=== PATIENT | male | born 1955 | race African-American/Black ===

== ENCOUNTER 2016-04-02 11:05 | Emergency (ER) | payer BC ==
--- NOTE | 2016-04-02 12:20 | UC ---
Head Injury HPI - HPI Summary HPI Summary: Two brake rotors fell on top of patient's head about 30-60 minutes ago. Initial seeing stars and feeling unsteady for 15-20 seconds. Headache and "stiffness ... weird" sensation across nose and cheeks since. Two painful swollen areas on back of head. Has been icing it since injury. When Asked, patient's stated patient has been acting normal. 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 PCP Haylee. He feels " a little funny", feels as if his right face feels like it is going to become tingly. no w/n/t. no slurred speech. he and his declines any confusion. - History Of Current Complaint Chief Complaint: UCHeadInjury Stated Complaint: HEAD INJURY Time Seen by Provider: 04/02/16 12:11 - Allergies/Home Medications Allergies/Adverse Reactions: Allergies Allergy/AdvReac Type Severity Reaction Status Date / Time No Known Allergies Allergy Verified 05/23/15 20:09 Home Medications: Home Medications Aspirin EC Low Dose* [Ecotrin EC Low Dose*] 81 mg PO DAILY 04/02/16 [History Confirmed 04/02/16] PMH/Surg Hx/FS Hx/Imm Hx Previously Healthy: Yes Endocrine History Of: Denies: Diabetes Cardiovascular History Of: Reports: Cardiac Disorders - a fib had an ablation, Hypertension Respiratory History Of: Denies: Asthma - Surgical History Surgical History: Yes Surgery Procedure, Year, and Place: Cardiac Ablation for Yojana Nicholson, 2007, [facility]. Umbilical Herniorrhaphy. Bilateral Knee Arthroplasties. Left Total Knee Arthroplasty - Family History Known Family History: Positive: Hypertension - Social History Alcohol Use: None Substance Use Type: None Smoking Status (MU): Never Smoked Tobacco - Immunization History Most Recent Tetanus Shot: 2008 Review of Systems Constitutional: Negative Skin: Negative Eyes: Negative ENT: Negative Respiratory: Negative Cardiovascular: Negative Gastrointestinal: Negative Genitourinary: Negative Motor: Negative Neurovascular: Negative Musculoskeletal: Negative Neurological: Other - "feel off" Psychological: Negative All Other Systems Reviewed And Are Negative: Yes Physical Exam Triage Information Reviewed: Yes Appearance: Well-Appearing, No Pain Distress, Well-Nourished Vital Signs: Initial Vital Signs Temp 97.9 F 04/02/16 11:31 Pulse 68 04/02/16 11:31 Resp 16 04/02/16 11:31 BP 124/87 04/02/16 11:31 Pulse Ox 99 04/02/16 11:31 Eye Exam: Normal ENT Exam: Normal ENT: Positive: Pharynx normal - no uvula Neck exam: Normal Neck: Positive: Supple, Nontender, No Lymphadenopathy Respiratory Exam: Normal Respiratory: Positive: Chest non-tender, Lungs clear, Normal breath sounds, No respiratory distress, No accessory muscle use Cardiovascular Exam: Normal Cardiovascular: Positive: RRR, No Murmur, Pulses Normal, Brisk Capillary Refill Abdominal Exam: Normal Abdomen Description: Positive: Nontender, Soft Musculoskeletal Exam: Normal Neurological Exam: Normal Neurological: Positive: Other: - CR III-XII intact. neg rhomberg, no pronator drift, nml tandem walk. pupils 5 to 3 mm. no tongue deviation, smile symmetrical. strength 5/5 UE and LE b/l. Psychological Exam: Normal Skin Exam: Normal Re-Evaluation - Re-Evaluation First Eval Re-Evaluation Time: 12:35 Change: Unchanged - vitals stable, pt stable Head Injury Course/Dx - Course Course Of Treatment: I feel that CT head is necessary bc sx and trauma to head. It is NA here today and would need to go to the closest ER bc nature of injury being a head trauma. His , Jodee, will be driving. Aware of risks of not taking ambulance AMA with risk of bleed, cva, sz, permenent disability. Of note , he is on 81 mgs of ASA (no coumadin or other blood thinners. h/o cardiac ablation and is reglar today). - Differential Dx/Diagnosis Differential Diagnosis/HQI/PQRI: Concussion Without LOC, Contusion, Intracranial Bleed Provider Diagnoses: head trauma - Physician Notification/Consults Discussed Patient Care With: FERNANDA Long at [facility] who accepts pt. case discussed. will fax note. Time Discussed With Above Provider: 12:30 Instructed by Provider To: Will See In ED Discharge - Discharge Plan Condition: Good Disposition: TRANS HIGHER LVL OF CARE FAC Referrals: J Carlos Leach MD [Primary Care Provider] - 2 Days
[2016-04-02 12:34] VITALS: BP 132/83
== END 2016-04-02 12:34 | disposition short-term general hospital (02) ==
LOC: UCCORT 11:05
DX: S09.90XA Unspecified injury of head, initial encounter (principal); W20.8XXA Other cause of strike by thrown, projected or falling object, initial encounter; Y93.89 Activity, other specified; Y92.9 Unspecified place or not applicable; I48.91 Unspecified atrial fibrillation; I10 Essential (primary) hypertension
CPT/HCPCS: 99213; G0463

== ENCOUNTER 2016-10-22 20:01 | Emergency (ER) | payer BC ==
[2016-10-22 20:15] VITALS: BP 117/73
[2016-10-22] MEDS ORDERED: Acetaminophen TAB* 325 MG PO ONE (20:29)
--- NOTE | 2016-10-22 20:30 | UC ---
Elbow Pain - HPI Summary HPI Summary: Fell and hit R elbow while fishing today. now has swelling and restricted ROM. Took naproxen earlier without relief. Pt states that R elbow is never able to fully extend. - History of Current Complaint Chief Complaint: UCUpperExtremity Stated Complaint: RIGHT ELBOW INJURY Time Seen by Provider: 10/22/16 20:23 Hx Obtained From: Patient Onset/Duration: Hours, Traumatic Severity Initially: Moderate Severity Currently: Moderate Location Of Pain: Is Discrete @ Character: Dull, Aching Aggravating Factor(s): Movement Alleviating Factor(s): Rest Associated Signs And Symptoms: Positive: Swelling - Allergies/Home Medications Allergies/Adverse Reactions: Allergies Allergy/AdvReac Type Severity Reaction Status Date / Time No Known Allergies Allergy Verified 10/22/16 20:07 Home Medications: Home Medications Naproxen Sodium [Naproxen Sodium 220 mg] 220 mg PO ONCE PRN 10/22/16 [History Confirmed 10/22/16] PMH/Surg Hx/FS Hx/Imm Hx Cardiovascular History: Hypertension, Atrial Fibrillation - Surgical History Surgical History: Yes Surgery Procedure, Year, and Place: Cardiac Ablation for A. FIb, 2007, [facility]. Umbilical Herniorrhaphy. Bilateral Knee Arthroplasties. Left Total Knee Arthroplasty. 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 Alcohol Use: None Substance Use Type: None Smoking Status (MU): Never Smoked Tobacco - Immunization History Most Recent Tetanus Shot: 2008 Review of Systems Constitutional: Negative Skin: Negative Eyes: Negative ENT: Negative Respiratory: Negative Cardiovascular: Negative Gastrointestinal: Negative Genitourinary: Negative Motor: Negative Neurovascular: Negative Musculoskeletal: Arthralgia, Decreased ROM - R elbow Neurological: Negative Psychological: Negative Is Patient Immunocompromised?: No All Other Systems Reviewed And Are Negative: Yes Physical Exam Triage Information Reviewed: Yes Appearance: Well-Appearing, Well-Nourished Vital Signs: Initial Vital Signs Temp 97.6 F 10/22/16 20:11 Pulse 65 10/22/16 20:11 Resp 18 10/22/16 20:11 BP 117/73 10/22/16 20:11 Pulse Ox 98 10/22/16 20:11 Vital Signs Reviewed: Yes Eye Exam: Normal, Other - PERRL Eyes: Positive: Conjunctiva Clear ENT Exam: Normal ENT: Positive: Normal ENT inspection, Hearing grossly normal, Pharynx normal, TMs normal Dental Exam: Normal Neck exam: Normal Neck: Positive: Supple, Nontender, No Lymphadenopathy Respiratory Exam: Normal Respiratory: Positive: Chest non-tender, Lungs clear, Normal breath sounds, No respiratory distress, No accessory muscle use Cardiovascular Exam: Normal Cardiovascular: Positive: RRR, No Murmur Musculoskeletal: Positive: ROM Limited @ - R elbow -- extend to 165deg, flex to 80deg. Unable to raise R arm over head. Neurological Exam: Normal Neurological: Positive: Alert Psychological Exam: Normal Skin Exam: Normal Elbow Pain Course/Dx - Differential Dx/Diagnosis Provider Diagnoses: R elbow contusion. R olecranon bursitis Discharge - Discharge Plan Condition: Stable Disposition: HOME Patient Education Materials: Elbow Bursitis (ED), Contusion in Adults (ED) Referrals: Maicol Monique MD [Medical Doctor] - If Needed Additional Instructions: Follow up with the orthopedist if you do not see gradual improvement over the next several days, or if you are unable to do your normal duties at work.
--- NOTE | 2016-10-22 21:01 | RAD ---
INDICATION: Posterior right elbow pain after a fall COMPARISON: None. TECHNIQUE: 4 views right elbow. REPORT: The visualized bones of the right elbow are well corticated and properly aligned. There is no radiographically apparent fracture or dislocation. There is no radiographic evidence of pathologic joint effusion. Degenerative changes of the right elbow include enthesophyte formation at the olecranon process at the insertion site of the triceps tendon. At the musculotendinous junction of the triceps muscle there are 2 well-circumscribed calcifications best depicted on the lateral view of the radiograph. There is bony osteophyte formation along the palmar margin of the right elbow joint where the upper condyle abuts the coronoid process. IMPRESSION: Degenerative changes of the right elbow as described above without definite bony fracture or significant intra-articular effusion. If the patient's symptoms persist further follow-up imaging is recommended.
== END 2016-10-22 20:59 | disposition home or self-care (01) ==
LOC: UCCORT 20:01
DX: S50.01XA Contusion of right elbow, initial encounter (principal); W19.XXXA Unspecified fall, initial encounter; Y93.89 Activity, other specified; Y92.9 Unspecified place or not applicable; M70.21 Olecranon bursitis, right elbow; Y93.9 Activity, unspecified; I10 Essential (primary) hypertension; I48.91 Unspecified atrial fibrillation
CPT/HCPCS: 99212; A9270-GY; G0463

== ENCOUNTER 2018-01-14 13:33 | Emergency (ER) | payer BC ==
[2018-01-14 14:29] VITALS: BP 116/89
--- NOTE | 2018-01-14 15:02 | UC ---
UC General HPI - HPI Summary HPI Summary: Patient has generalized cold symtpoms, no fever, complaining of body aches, and fatique. has been this way for 2 weeks - History of Current Complaint Chief Complaint: UCGeneralIllness Stated Complaint: FEVER/BODHY ACHES/CHILLS Time Seen by Provider: 01/14/18 14:35 Hx Obtained From: Patient Onset/Duration: Gradual Onset, Lasting Weeks Timing: Constant Onset Severity: Mild Current Severity: Mild Pain Intensity: 0 - Allergy/Home Medications Allergies/Adverse Reactions: Allergies Allergy/AdvReac Type Severity Reaction Status Date / Time No Known Allergies Allergy Verified 01/14/18 14:25 PMH/Surg Hx/FS Hx/Imm Hx Previously Healthy: Yes - Surgical History Surgical History: Yes Surgery Procedure, Year, and Place: Cardiac Ablation for A. FIb, 2007, [facility]. Umbilical Herniorrhaphy. Bilateral Knee Arthroplasties. Left Total Knee Arthroplasty. uvulaectomy - Family History Known Family History: Positive: Hypertension - Social History Alcohol Use: None Substance Use Type: None Smoking Status (MU): Never Smoked Tobacco - Immunization History Most Recent Tetanus Shot: 2008 Review of Systems All Other Systems Reviewed And Are Negative: Yes Constitutional: Positive: Fatigue Skin: Positive: Negative Eyes: Positive: Negative ENT: Positive: Negative Respiratory: Positive: Negative Cardiovascular: Positive: Negative Gastrointestinal: Positive: Negative Genitourinary: Positive: Negative Motor: Positive: Negative Neurovascular: Positive: Negative Musculoskeletal: Positive: Arthralgia, Myalgia Neurological: Positive: Negative Psychological: Positive: Negative Is Patient Immunocompromised?: No Physical Exam Triage Information Reviewed: Yes Appearance: No Pain Distress, Well-Nourished, Ill-Appearing Vital Signs: Initial Vital Signs Temp 97.6 F 01/14/18 14:22 Pulse 78 01/14/18 14:22 Resp 17 01/14/18 14:22 BP 116/89 01/14/18 14:22 Pulse Ox 97 01/14/18 14:22 Vital Signs Reviewed: Yes Eye Exam: Normal ENT Exam: Normal ENT: Positive: Pharynx normal, TMs normal Dental Exam: Normal Neck exam: Normal Neck: Positive: Supple, Nontender, No Lymphadenopathy Respiratory Exam: Normal Respiratory: Positive: Chest non-tender, Lungs clear, Normal breath sounds Cardiovascular Exam: Normal Cardiovascular: Positive: RRR, No Murmur, Pulses Normal Abdominal Exam: Normal Abdomen Description: Positive: Nontender, No Organomegaly, Soft Musculoskeletal Exam: Normal Musculoskeletal: Positive: Strength Intact, ROM Intact, No Edema Neurological Exam: Normal Psychological Exam: Normal Skin Exam: Normal Course/Dx - Course Course Of Treatment: hx obtained, exam performed ,meds reviewed, flu swab was negative, talked with patient, he has no definite signs or symtpoms of illness at this time. recommend takeing the prednisone and following up with PCP for possible blood work and follow up if not improving - Diagnoses Provider Diagnosis: Fatigue, Generalized body aches Discharge - Sign-Out/Discharge Documenting (check all that apply): Patient Departure All imaging exams completed and their final reports reviewed: Yes - Discharge Plan Condition: Stable Disposition: HOME Patient Education Materials: Fatigue (ED) Referrals: J Carlos Leach MD [Primary Care Provider] - Additional Instructions: 1. if not feeling better in one week follow up with your primary doctor 2. Get plenty of rest and increase your clear fluid intake - Billing Disposition and Condition Condition: STABLE Disposition: Home
== END 2018-01-14 15:17 | disposition home or self-care (01) ==
LOC: UCCORT 13:33
DX: R53.83 Other fatigue (principal); R52 Pain, unspecified
CPT/HCPCS: 99212; G0463

== ENCOUNTER 2018-02-15 21:28 | Emergency (ER) | payer BC ==
[2018-02-15 21:42] VITALS: BP 140/75
[2018-02-15] MEDS ORDERED: Clarithromycin TAB* 500 MG PO ONE (21:50)
--- NOTE | 2018-02-15 21:55 | ED ---
Throat Pain/Nasal Congestion - HPI Summary HPI Summary: 63 yr old male with the complaint of fever, chills, myalgias, sinus congestion, coughing. Onset one week ago, the day after shama. The patient complains of congestion and coughing. He has frontal sinus congestion and discomfort as well. Denies CP, SOB. Tmax 103. Symptoms are moderate - History of Current Complaint Chief Complaint: UCRespiratory Time Seen by Provider: 02/15/18 21:41 - Allergies/Home Medications Allergies/Adverse Reactions: Allergies Allergy/AdvReac Type Severity Reaction Status Date / Time No Known Allergies Allergy Verified 02/15/18 21:37 Home Medications: Home Medications Famotidine TAB* [Pepcid 20 MG TAB*] 1 tab BID 02/15/18 [History Confirmed ] Testosterone 30 mg TRANSDERM DAILY 02/15/18 [History Confirmed 02/15/18] PMH/Surg Hx/FS Hx/Imm Hx Previously Healthy: Yes Endocrine/Hematology History: Denies: Hx Diabetes Cardiovascular History: Reports: Hx Hypertension Respiratory History: Denies: Hx Asthma - Surgical History Surgery Procedure, Year, and Place: Cardiac Ablation for A. FIb, 2007, [facility]. Umbilical Herniorrhaphy. Bilateral Knee Arthroplasties. Left Total Knee Arthroplasty. uvulaectomy Infectious Disease History: No Infectious Disease History: Denies: Traveled Outside the [place] in Last 30 Days - Family History Known Family History: Positive: Hypertension - Social History Alcohol Use: None Substance Use Type: Reports: None Smoking Status (MU): Never Smoked Tobacco Review of Systems Positive: Fever, Chills Positive: Sore Throat, Nasal Discharge Positive: Cough All Other Systems Reviewed And Are Negative: Yes Physical Exam Triage Information Reviewed: Yes Vital Signs On Initial Exam: Initial Vitals Temp Pulse Resp BP Pulse Ox 97.7 F 84 24 140/75 97 02/15/18 21:39 02/15/18 21:39 02/15/18 21:39 02/15/18 21:39 02/15/18 21:39 Appearance: Positive: Well-Appearing, No Pain Distress Skin: Positive: Warm, Skin Color Reflects Adequate Perfusion Head/Face: Positive: Normal Head/Face Inspection Eyes: Positive: EOMI ENT: Positive: Pharyngeal erythema, Nasal congestion, Nasal drainage, TMs normal , Sinus tenderness - frontal Neck: Positive: Nontender Respiratory/Lung Sounds: Positive: Clear to Auscultation, Breath Sounds Present Cardiovascular: Positive: RRR. Negative: Murmur Abdomen Description: Negative: Distended Musculoskeletal: Positive: Strength/ROM Intact Neurological: Positive: Sensory/Motor Intact, Alert, Oriented to Person Place, Time, CN Intact II-III, Normal Gait, Speech Normal Psychiatric: Positive: Normal - Keily Coma Scale Best Eye Response: 4 - Spontaneous Best Motor Response: 6 - Obeys Commands Best Verbal Response: 5 - Oriented Coma Scale Total: 15 Diagnostics - Vital Signs Vital Signs Temp Pulse Resp BP Pulse Ox 02/15/18 21:39 97.7 F 84 24 140/75 97 - Laboratory Lab Statement: Any lab studies that have been ordered have been reviewed, and results considered in the medical decision making process. EENT Course/Dx - Course Course Of Treatment: 63 yr old male with flu like symptoms for a week, but also with frontal sinus congestion and discomfort. Will Rx with Biaxin for sinusitis. Do not feel tamiflu will benefit him if he is positive for influenza as his symptoms began over a week ago at this point. - Diagnoses Provider Diagnoses: Sinusitis Discharge - Sign-Out/Discharge Documenting (check all that apply): Patient Departure All imaging exams completed and their final reports reviewed: No Studies - Discharge Plan Condition: Good Disposition: HOME Prescriptions: Clarithromycin TAB* [Biaxin 500 MG TAB*] 500 mg PO BID #20 tab Patient Education Materials: Sinusitis (ED), Hypertension (ED) Referrals: J Carlos Leach MD [Primary Care Provider] - 2 Days - Billing Disposition and Condition Condition: GOOD Disposition: Home
== END 2018-02-15 22:03 | disposition home or self-care (01) ==
LOC: UCCORT 21:28
DX: J32.9 Chronic sinusitis, unspecified (principal); I10 Essential (primary) hypertension
CPT/HCPCS: 99212; A9270-GY; G0463

== ENCOUNTER 2018-05-03 17:28 | Emergency (ER) | payer BC ==
[2018-05-03 18:03] VITALS: BP 145/88
--- NOTE | 2018-05-03 18:15 | UC ---
Knee Pain HPI - HPI Summary HPI Summary: Patient injured the right knee 1 month ago, slipping on the ice. he has had pain behind the knee since, some increased swelling of the knee noted. it is still painful. - History of Current Complaint Chief Complaint: UCLowerExtremity Stated Complaint: RIGHT KNEE INJURY Time Seen by Provider: 05/03/18 18:05 Hx Obtained From: Patient Onset/Duration: Sudden Onset, Lasting Weeks Severity Initially: Moderate Severity Currently: Mild Pain Intensity: 3 Aggravating Factor(s): Movement, Weight Bearing, Prolonged Standing Alleviating Factor(s): Rest Associated Signs And Symptoms: Positive: Swelling - Allergies/Home Medications Allergies/Adverse Reactions: Allergies Allergy/AdvReac Type Severity Reaction Status Date / Time No Known Allergies Allergy Verified 05/03/18 17:57 PMH/Surg Hx/FS Hx/Imm Hx Previously Healthy: Yes - Surgical History Surgical History: Yes Surgery Procedure, Year, and Place: Cardiac Ablation for A. FIb, 2007, [facility]. Umbilical Herniorrhaphy. Bilateral Knee Arthroplasties. Left Total Knee Arthroplasty. uvulaectomy - Family History Known Family History: Positive: Hypertension - Social History Alcohol Use: None Substance Use Type: None Smoking Status (MU): Never Smoked Tobacco - Immunization History Most Recent Tetanus Shot: 2008 Review of Systems All Other Systems Reviewed And Are Negative: Yes Constitutional: Positive: Negative Skin: Positive: Negative Eyes: Positive: Negative ENT: Positive: Negative Respiratory: Positive: Negative Cardiovascular: Positive: Negative Gastrointestinal: Positive: Negative Genitourinary: Positive: Negative Motor: Positive: Negative Neurovascular: Positive: Negative Musculoskeletal: Positive: Arthralgia, Decreased ROM, Edema, Myalgia Neurological: Positive: Negative Psychological: Positive: Negative Is Patient Immunocompromised?: No Physical Exam Triage Information Reviewed: Yes Appearance: Well-Appearing, Well-Nourished, Pain Distress Vital Signs: Initial Vital Signs Temp 98.3 F 05/03/18 17:59 Pulse 66 05/03/18 17:59 Resp 16 05/03/18 17:59 BP 145/88 05/03/18 17:59 Pulse Ox 98 05/03/18 17:59 Vital Signs Reviewed: Yes Eye Exam: Normal ENT Exam: Normal Dental Exam: Normal Neck exam: Normal Respiratory Exam: Normal Respiratory: Positive: Chest non-tender, Lungs clear, Normal breath sounds Cardiovascular Exam: Normal Cardiovascular: Positive: RRR, No Murmur, Pulses Normal Abdominal Exam: Normal Abdomen Description: Positive: Nontender, No Organomegaly, Soft Bowel Sounds: Positive: Present Musculoskeletal: Positive: Strength Intact, ROM Limited @ - due to pain in back of knee, Edema @ - mild edema of the joint noted Psychological Exam: Normal Skin Exam: Normal Knee Pain Course/Dx - Course Course Of Treatment: hx obtained, exam performed ,meds reviewed, xray obtained, referred to [facility] for follow up - Differential Dx/Diagnosis Differential Diagnosis/HQI/PQRI: Cellulitis, Contusion, Dislocation, Fracture ( Closed), Sprain Provider Diagnosis: Right knee pain Discharge - Sign-Out/Discharge Documenting (check all that apply): Patient Departure All imaging exams completed and their final reports reviewed: No - Discharge Plan Condition: Stable Disposition: HOME Patient Education Materials: Swollen Knee Joint (ED) Referrals: Maicol Monique MD [Medical Doctor] - J Carlos Leach MD [Primary Care Provider] - Additional Instructions: 1. your official xray read will be available tomorrow morning. there is no apparent fracture. we will call if the radiologist finds anything. 2. I recommend follow up with the orthopedic for further evaluation. 3. Use the juan wrap to help with swelling. 4. COntinue with Ibuprofen for pain. - Billing Disposition and Condition Condition: STABLE Disposition: Home
--- NOTE | 2018-05-04 16:18 | ED ---
Progress - Progress Note Progress Note: xray NAD Course/Dx - Diagnoses Provider Diagnoses: Right knee pain Discharge - Sign-Out/Discharge Documenting (check all that apply): Patient Departure All imaging exams completed and their final reports reviewed: Yes - Discharge Plan Condition: Stable Disposition: HOME Patient Education Materials: Swollen Knee Joint (ED) Referrals: Maicol Monique MD [Medical Doctor] - J Carlos Leach MD [Primary Care Provider] - Additional Instructions: 1. your official xray read will be available tomorrow morning. there is no apparent fracture. we will call if the radiologist finds anything. 2. I recommend follow up with the orthopedic for further evaluation. 3. Use the juan wrap to help with swelling. 4. COntinue with Ibuprofen for pain. - Billing Disposition and Condition Condition: STABLE Disposition: Home
== END 2018-05-03 19:10 | disposition home or self-care (01) ==
LOC: UCCORT 17:28
DX: M25.561 Pain in right knee (principal); W00.0XXA Fall on same level due to ice and snow, initial encounter; Y92.9 Unspecified place or not applicable
CPT/HCPCS: 99212; G0463

== ENCOUNTER 2018-09-30 12:46 | Emergency (ER) | payer BC ==
[2018-09-30 13:10] VITALS: BP 126/93
--- NOTE | 2018-09-30 13:39 | UC ---
Back Pain HPI - HPI Summary HPI Summary: Pt present with c/o right mid flank pain that is intermittent, worsens with certain movements and with taking deep breaths. Denies SOB, denies injury, denies recent heavy lifting or repetitive movements. Pt states that pain began a few days after colonoscopy on 09/20/18. Pt was seen by GI provider who did colonoscopy and was told he needed another colonoscopy in 10 years. - History of Current Complaint Chief Complaint: UCBackPain Stated Complaint: BACK PAIN Time Seen by Provider: 09/30/18 13:02 Hx Obtained From: Patient Onset/Duration: Sudden Onset, Lasting Days, Still Present Timing: Intermittent Severity Initially: Mild Severity Currently: Mild Pain Intensity: 2 Back Pain: Is Discrete @ - right mid back/flank Character: Sharp, Dull, Aching Aggravating Factor(s): Movement, Other - deep breaths Alleviating Factor(s): Rest, Position Associated Signs And Symptoms: Positive: Flank Pain - Risk Factors AAA Risk Factors: Negative TAD Risk Factors: Negative Cauda Equina Risk Factors: Negative Epidural Abscess Risk Factors: Negative - Allergies/Home Medications Allergies/Adverse Reactions: Allergies Allergy/AdvReac Type Severity Reaction Status Date / Time No Known Allergies Allergy Verified 09/30/18 13:10 PMH/Surg Hx/FS Hx/Imm Hx Previously Healthy: Yes - Surgical History Surgical History: Yes Surgery Procedure, Year, and Place: Cardiac Ablation for A. FIb, 2007, [facility]. Umbilical Herniorrhaphy. Bilateral Knee Arthroplasties. Left Total Knee Arthroplasty. uvulaectomy - Family History Known Family History: Positive: Hypertension - Social History Occupation: Employed Full-time Lives: With Family Alcohol Use: None Substance Use Type: None Smoking Status (MU): Never Smoked Tobacco Have You Smoked in the Last Year: No - Immunization History Most Recent Tetanus Shot: 2008 Hx Tetanus, Diphtheria Vaccination: Yes - needs booster Vaccination Up to Date: Yes Review of Systems All Other Systems Reviewed And Are Negative: Yes Constitutional: Positive: Negative Skin: Positive: Negative Eyes: Positive: Negative ENT: Positive: Negative Respiratory: Positive: Negative Cardiovascular: Positive: Negative Gastrointestinal: Positive: Negative Genitourinary: Positive: Negative Motor: Positive: Negative Neurovascular: Positive: Negative Musculoskeletal: Positive: Myalgia - rright mid back and flank Neurological: Positive: Negative Psychological: Positive: Negative Is Patient Immunocompromised?: No Physical Exam Triage Information Reviewed: Yes Appearance: Well-Appearing Vital Signs: Initial Vital Signs Temp 97.2 F 09/30/18 12:59 Pulse 78 09/30/18 12:59 Resp 18 09/30/18 12:59 BP 126/93 09/30/18 12:59 Pulse Ox 98 09/30/18 12:59 Vital Signs Reviewed: Yes Eye Exam: Normal ENT Exam: Normal Dental Exam: Normal Neck exam: Normal Respiratory Exam: Normal Cardiovascular Exam: Normal Abdominal Exam: Normal Abdomen Description: Positive: Nontender Musculoskeletal Exam: Normal Neurological Exam: Normal Psychological Exam: Normal Skin Exam: Normal Back Pain Course/Dx - Course Course Of Treatment: I discussed the UA results with the pt and discussed the need to follow up with GI provider as his pain began days after colonoscopy. - Differential Dx/Diagnosis Differential Diagnosis/HQI/PQRI: Strain Provider Diagnosis: Back pain, Costochondral pain Discharge - Sign-Out/Discharge Documenting (check all that apply): Patient Departure All imaging exams completed and their final reports reviewed: No Studies - Discharge Plan Condition: Stable Disposition: HOME Prescriptions: Cyclobenzaprine TAB* [Flexeril 10 MG TAB*] 10 mg PO Q8H PRN #6 tab PRN Reason: Pain - Mild Patient Education Materials: Musculoskeletal Pain (ED), Lower Back Exercises ( ED) Referrals: J Carlos Leach MD [Primary Care Provider] - If Needed Additional Instructions: Please follow up with your PCP and your GI provider as needed. - Billing Disposition and Condition Condition: STABLE Disposition: Home
== END 2018-09-30 14:08 | disposition home or self-care (01) ==
LOC: UCCORT 12:46
DX: M54.9 Dorsalgia, unspecified (principal); R07.1 Chest pain on breathing
CPT/HCPCS: 81003; 99212; G0463

== ENCOUNTER 2019-12-24 10:52 | Observation (INO) ==
[~2019-12-24 10:52] MED LIST: Buffered Lidocaine 1% SYRIN 1 ml INTRADERM ONE; Lactated Ringers 1000 ml BAG 1,000 ML IV SCH; ceFAZolin 1 GM ADVAN 1 GM ADDV.VIAL IVPB ONE; ceFAZolin 2 GM PREMIX 2 GM/50 ML BAG ONE
[2019-12-24] MEDS ORDERED: Ondansetron 4 mg VIAL 2 MG/ML 2 ml VIAL ONE (11:10)
[2019-12-24] MEDS ORDERED: Propofol 10 MG/ML 20 ML BTL ONE (11:10)
[2019-12-24] MEDS ORDERED: Lidocaine 2% PF 5 ML VIAL ONE ×2 (11:10→16:16)
[2019-12-24] MEDS ORDERED: Succinylcholine 200 mg VIAL 20 mg/ml 10 ml VIAL (200 mg) ONE (11:10)
[2019-12-24] MEDS ORDERED: Rocuronium 50 mg VIAL 10 mg/ml 5 ml VIAL (50 mg) ONE ×3 (11:10→14:49)
[2019-12-24] MEDS ORDERED: Dexamethasone IV 4 MG/ML VIAL 1 ml VIAL ONE (11:10)
[2019-12-24] MEDS ORDERED: fentaNYL 250 mcg/5 ml 50 MCG/ML 5 ml VIAL (250 MCG) ONE (11:12)
[2019-12-24] MEDS ORDERED: Lidocaine 1% w EPI 1:100,000 MDV 20 ML VIAL ONE (11:29)
[2019-12-24] MEDS ORDERED: Bupivacaine 0.25% SDV 30 ML ONE (11:29)
[2019-12-24] MEDS ORDERED: Bacitracin INJECTION 50,000 UNITS ONE (11:29)
[2019-12-24] MEDS ORDERED: Midazolam 5 mg/ml concentrated 5 mg/ml 1 ml VIAL ONE (11:34)
[2019-12-24] MEDS ORDERED: Glycopyrrolate IV 0.2 MG/ML 1 ML VIAL ONE (12:02)
[2019-12-24] MEDS ORDERED: HYDROmorphone 1 MG/1 ML SYRINGE ONE (12:16)
[2019-12-24] MEDS ORDERED: Phenylephrine 40 mcg/mL 10mL (400mcg) SYRINGE ONE ×2 (12:22→12:58)
[2019-12-24] MEDS ORDERED: Ondansetron 4 mg VIAL 2 MG/ML 2 ml VIAL IV PRN ×2 (15:05→16:50)
[2019-12-24] MEDS ORDERED: Naloxone 0.4 mg VIAL 0.4 mg/ml 1 ml VIAL IV PRN (15:05)
[2019-12-24] MEDS ORDERED: HYDROmorphone 1 MG/1 ML SYRINGE IV PRN (15:05)
[2019-12-24] MEDS ORDERED: fentaNYL 100 mcg/2 ml 50 MCG/ML VIAL IV PRN (15:05)
[2019-12-24] MEDS ORDERED: ceFAZolin 2 GM PREMIX 2 GM/50 ML BAG ONE (15:53)
[2019-12-24] MEDS ORDERED: ceFAZolin 1 GM ADVAN 1 GM ADDV.VIAL IVPB ONE (15:53)
[2019-12-24] MEDS ORDERED: HYDROcodone/ACETAMIN 5/325 mg TAB PO PRN ×2 (16:50)
[2019-12-24] MEDS ORDERED: Magnesium Hydroxide LIQ 30 ML UDC PO PRN (16:50)
[2019-12-24] MEDS ORDERED: fentaNYL 100 mcg/2 ml 50 MCG/ML VIAL ONE (17:36)
[2019-12-25 03:59] VITALS: BP 129/82
== END 2019-12-25 11:30 | disposition home or self-care (01) ==
LOC: OR 10:52 → INTOOBSV 16:50 → SSU 16:50
PROVIDERS: ADMIT Neurological Surgery; ATTEND Neurological Surgery